=== PATIENT | female | born 1995 | race Caucasian/White ===

== ENCOUNTER 2017-04-02 17:08 | Emergency (ER) | payer OTHER ==
[~2017-04-02] VITALS: Ht 154.9 cm; Wt 63.6 kg
[2017-04-02 17:09] VITALS: BP 154/81
[2017-04-02] MEDS ORDERED: TESS100C PO (17:36)
[2017-04-02] MEDS ORDERED: ZITHTAB PO (17:36)
== END 2017-04-02 17:48 | disposition home or self-care (01) ==
LOC: M ED 17:08
DX: J01.90 Acute sinusitis, unspecified (principal)

== ENCOUNTER → 2018-08-13 | Outpatient (CLI) | payer OTHER ==
[~2018-08-13] MED LIST: TESS100C PO; ZITHTAB PO
[2018-08-13 18:15] LABS: RUBELLA IgG QUALITATIVE IMMUNE (IMMUNE)
[2018-08-15 08:38] LABS: MUMPS VIRUS IgG ANTIBODY 59.8 AU/mL (Immune >10.9)
== END ==
LOC: M WUC 13:48
PROVIDERS: ATTEND Physician Assistant
DX: Z02.1 Encounter for pre-employment examination (principal)

== ENCOUNTER 2020-06-01 21:48 | Emergency (ER) | payer OTHER ==
[~2020-06-01] VITALS: Ht 154.9 cm; Wt 68.4 kg
[2020-06-02 00:21] LABS: BASO # 0.1 10^3/uL (0.0-0.2); BASO % 0.4 % (0.0-1.0); EOS # 0.1 10^3/uL (0.0-0.5); EOS % 0.9 % (0.0-3.0); HEMATOCRIT 45.5 % (36.0-47.0); HEMOGLOBIN 15.2 g/dl (12.0-15.5); LYMPH # 3.2 10^3/uL (1.5-5.0); LYMPH % 22.3 % (24.0-44.0); MEAN CORPUSCULAR HEMOGLOBIN 29.7 pg (27.0-33.0); MEAN CORPUSCULAR HGB CONC 33.4 g/dl (32.0-36.5); MEAN CORPUSCULAR VOLUME 88.9 fl (80.0-96.0); MONO # 0.9 10^3/uL (0.0-0.8); MONO % 6.1 % (0.0-5.0); NEUTROPHILS # 9.9 10^3/uL (1.5-8.5); NEUTROPHILS % 69.7 % (36.0-66.0); PLATELET COUNT, AUTOMATED 305 10^3/uL (150-450); RED BLOOD COUNT 5.12 10^6/uL (4.00-5.40); WHITE BLOOD COUNT 14.2 10^3/uL (4.0-10.0)
[2020-06-02 00:50] LABS: ACETAMINOPHEN LEVEL < 2.0 UG/ML (10.0-30.0); ALBUMIN 3.8 GM/DL (3.2-5.2); ALT/SGPT 34 U/L (12-78); BILIRUBIN,DIRECT 0.2 MG/DL (0.0-0.2); BILIRUBIN,TOTAL 0.4 MG/DL (0.2-1.0); BLOOD UREA NITROGEN 7 MG/DL (7-18); CALCIUM LEVEL 9.5 MG/DL (8.5-10.1); CARBON DIOXIDE LEVEL 26 MEQ/L (21-32); CHLORIDE LEVEL 107 MEQ/L (98-107); CPK CREATINE PHOSPHOKINASE 37 U/L (26-192); CREATININE FOR GFR 0.81 MG/DL (0.55-1.30); ETHYL ALCOHOL (ETHANOL) < 0.003 % (0.000-0.010); GLOMERULAR FILTRATION RATE > 60.0 (>60); GLUCOSE, FASTING 78 MG/DL (70-100); POTASSIUM SERUM 3.7 MEQ/L (3.5-5.1); SALICYLATE LEVEL < 1.7 MG/DL (5.0-30.0); SODIUM LEVEL 138 MEQ/L (136-145); THYROID STIMULATING HORMONE 0.597 uIU/ML (0.358-3.740); TOTAL PROTEIN 7.1 GM/DL (6.4-8.2)
[2020-06-02 01:24] LABS: AMPHETAMINES LEVEL URINE NEGATIVE (NEGATIVE); BARBITURATES URINE NEGATIVE (NEGATIVE); BENZODIAZEPINES URINE NEGATIVE (NEGATIVE); CANNABINOIDS URINE POSITIVE (NEGATIVE); COCAINE METABOLITE URINE NEGATIVE (NEGATIVE); METHADONE URINE NEGATIVE (NEGATIVE); OPIATES URINE NEGATIVE (NEGATIVE); PHENCYCLIDINE URINE NEGATIVE (NEGATIVE)
[2020-06-02] MEDS ORDERED: FAMOTIDINE INJ 20MG/2ML VIAL (S0028 PER 1) IVP ONE (02:15)
[2020-06-02] MEDS ORDERED: NS 1,000 ML IV ONE ×2 (02:15)
[2020-06-02] MEDS ORDERED: ONDANSETRON 4MG/2ML VIAL IV ONE (02:15)
[2020-06-02] MEDS ORDERED: METAL LOCK LOOP XX ONE (02:22)
[2020-06-02 02:30] LABS: APPEARANCE, URINE HAZY (CLEAR); BACTERIA, URINE AUTO NEGATIVE (NEGATIVE); BILIRUBIN, URINE AUTO NEGATIVE (NEGATIVE); BLOOD, URINE BLOOD NEGATIVE (NEGATIVE); COLOR, URINE YELLOW (YELLOW); GLUCOSE, URINE (UA) AUTO NEGATIVE (NEGATIVE); KETONE, URINE AUTO 2+ mg/dL (NEGATIVE); LEUKOCYTE ESTERASE, URINE AUTO 1+ (NEGATIVE); MUCUS, URINE SMALL (NEGATIVE); NITRITE, URINE AUTO NEGATIVE (NEGATIVE); PROTEIN, URINE AUTO NEGATIVE (NEGATIVE); RBC, URINE AUTO 1 /HPF (0-3); SQUAMOUS EPITHELIAL CELL UR AU 7 /HPF (0-6); UROBILINOGEN, URINE AUTO 0.2 mg/dL (0.0-2.0); WBC, URINE AUTO 6 /HPF (0-3)
[2020-06-02] MEDS ORDERED: LR 1,000 ML IV ONE (03:00)
[2020-06-02 04:39] LABS: APPEARANCE, URINE CLEAR (CLEAR); BACTERIA, URINE AUTO NEGATIVE (NEGATIVE); BILIRUBIN, URINE AUTO NEGATIVE (NEGATIVE); BLOOD, URINE BLOOD NEGATIVE (NEGATIVE); COLOR, URINE STRAW (YELLOW); GLUCOSE, URINE (UA) AUTO NEGATIVE (NEGATIVE); KETONE, URINE AUTO 1+ mg/dL (NEGATIVE); LEUKOCYTE ESTERASE, URINE AUTO NEGATIVE (NEGATIVE); MUCUS, URINE SMALL (NEGATIVE); NITRITE, URINE AUTO NEGATIVE (NEGATIVE); PROTEIN, URINE AUTO NEGATIVE (NEGATIVE); RBC, URINE AUTO 1 /HPF (0-3); SPECIFIC GRAVITY URINE AUTO 1.005 (1.002-1.035); SQUAMOUS EPITHELIAL CELL UR AU 1 /HPF (0-6); UROBILINOGEN, URINE AUTO 0.2 mg/dL (0.0-2.0); WBC, URINE AUTO 0 /HPF (0-3)
[2020-06-02 05:00] VITALS: BP 141/65
[2020-06-02] MEDS ORDERED: PEPC1TAB5 PO (05:32)
[2020-06-02] MEDS ORDERED: REGL5TAB2 PO (05:33)
--- NOTE | 2020-06-02 17:02 | ECGEPIP ---
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
== END 2020-06-02 05:53 | disposition home or self-care (01) ==
LOC: M ED 21:48
DX: O21.9 Vomiting of pregnancy, unspecified (principal); Z3A.08 8 weeks gestation of pregnancy
CPT/HCPCS: 80048; 80076; 80307; 81001; 82550; 84443; 85025; 93005; 96361; 96374; 96375; 99284; G0480; J2405

== ENCOUNTER → 2020-06-04 | Outpatient (REF) | payer OTHER ==
[~2020-06-04] MED LIST changes: +PEPC1TAB5 PO; +REGL5TAB2 PO
[2020-06-04 17:09] LABS: HEMATOCRIT 42.6 % (36.0-47.0); HEMOGLOBIN 14.2 g/dl (12.0-15.5); MEAN CORPUSCULAR HEMOGLOBIN 29.7 pg (27.0-33.0); MEAN CORPUSCULAR HGB CONC 33.3 g/dl (32.0-36.5); MEAN CORPUSCULAR VOLUME 89.1 fl (80.0-96.0); PLATELET COUNT, AUTOMATED 287 10^3/uL (150-450); RED BLOOD COUNT 4.78 10^6/uL (4.00-5.40); WHITE BLOOD COUNT 10.7 10^3/uL (4.0-10.0)
[2020-06-04 18:29] LABS: HCG, SERUM QUANTITATIVE 87666 MIU/ML; HEPATITIS B SURFACE ANTIGEN NEGATIVE (NEGATIVE); HEPATITIS C VIRUS ABY INDEX < 0.0 INDEX (<0.8); HIV 1&2 SCREEN CENTAUR NEGATIVE (NEGATIVE)
== END ==
LOC: M LAB REF 16:25
PROVIDERS: ATTEND Obstetrics & Gynecology
DX: O36.80X0 Pregnancy with inconclusive fetal viability, not applicable or unspecified (principal)

== ENCOUNTER → 2020-06-09 | Outpatient (CLI) | payer OTHER ==
--- NOTE | 2020-06-09 14:43 | REP ---
INDICATION: DATING AND VIABILITY. COMPARISON: None. TECHNIQUE: Real-time sonographic evaluation of gravid uterus performed. FINDINGS: There is a single living intrauterine gestation with an estimated gestational age of 8 weeks 5 days based on a crown-rump length of 21 mm. EDC is 01/14/2021. The heart rate is 165 beats per minute. A subchorionic hemorrhage is visualized measuring 7 x 14 x 17 mm. Left ovary is unremarkable. The right ovary demonstrates a cystic structure which is complex and measures approximately 2.2 cm in maximum diameter, likely a hemorrhagic corpus luteum. IMPRESSION: Single living intrauterine gestation as above with small subchorionic hemorrhage. <Electronically signed by Talat Ochoa > 06/09/20 [id number]
== END ==
LOC: M WHC 12:50
PROVIDERS: ATTEND Obstetrics & Gynecology
DX: O36.80X0 Pregnancy with inconclusive fetal viability, not applicable or unspecified (principal); Z3A.08 8 weeks gestation of pregnancy

== ENCOUNTER 2020-07-01 13:00 | Emergency (ER) | payer OTHER ==
[~2020-07-01] VITALS: Ht 154.9 cm; Wt 65.9 kg
[2020-07-01] MEDS ORDERED: ONDA4TAB6 SL (13:12)
[2020-07-01] MEDS ORDERED: METOCLOPRAMIDE INJ 10MG/2ML VIAL (J2765 PER 1) IV ONE (13:45)
[2020-07-01] MEDS ORDERED: NS 1,000 ML IV ONE (13:45)
[2020-07-01 14:06] LABS: BASO % 0.2 % (0.0-1.0); EOS # 0.1 10^3/uL (0.0-0.5); EOS % 0.6 % (0.0-3.0); HEMATOCRIT 43.6 % (36.0-47.0); HEMOGLOBIN 14.6 g/dl (12.0-15.5); LYMPH # 2.7 10^3/uL (1.5-5.0); LYMPH % 21.6 % (24.0-44.0); MEAN CORPUSCULAR HEMOGLOBIN 29.4 pg (27.0-33.0); MEAN CORPUSCULAR HGB CONC 33.5 g/dl (32.0-36.5); MEAN CORPUSCULAR VOLUME 87.9 fl (80.0-96.0); MONO # 0.7 10^3/uL (0.0-0.8); MONO % 5.3 % (0.0-5.0); NEUTROPHILS % 71.5 % (36.0-66.0); PLATELET COUNT, AUTOMATED 280 10^3/uL (150-450); RED BLOOD COUNT 4.96 10^6/uL (4.00-5.40); WHITE BLOOD COUNT 12.5 10^3/uL (4.0-10.0)
[2020-07-01] MEDS ORDERED: ACETAMINOPHEN TAB 650MG DOSE (2X325MG) PO ONE (14:15)
[2020-07-01 14:49] LABS: BLOOD UREA NITROGEN 9 MG/DL (7-18); CALCIUM LEVEL 9.2 MG/DL (8.5-10.1); CARBON DIOXIDE LEVEL 23 MEQ/L (21-32); CHLORIDE LEVEL 108 MEQ/L (98-107); CREATININE FOR GFR 0.74 MG/DL (0.55-1.30); GLOMERULAR FILTRATION RATE > 60.0 (>60); GLUCOSE, FASTING 92 MG/DL (70-100); HCG, SERUM QUANTITATIVE 34846 MIU/ML; POTASSIUM SERUM 3.5 MEQ/L (3.5-5.1); SODIUM LEVEL 141 MEQ/L (136-145)
--- NOTE | 2020-07-01 15:25 | REP ---
INDICATION: n/v, 12 weeks COMPARISON: None. TECHNIQUE: Transabdominal 1st trimester obstetrical ultrasound with color Doppler evaluation. FINDINGS: Single live intrauterine identified. Fetus measures 6 cm in length corresponding to 12 weeks 3 days gestational age with estimated date of delivery 01/10/2021. heart rate equals 160 beats per minute. No gross abnormalities are identified. IMPRESSION: Single live early intrauterine at 12 weeks 3 days gestational age. Complete anatomical assessment should be performed and 19-20 weeks. <Electronically signed by Saúl London > 07/01/20 [id number]
[2020-07-01 15:54] VITALS: BP 132/72
[2020-07-01] MEDS ORDERED: REGL10TA6 PO (15:58)
== END 2020-07-01 16:05 | disposition home or self-care (01) ==
LOC: M ED 13:00
DX: Z32.01 Encounter for pregnancy test, result positive (principal); O21.9 Vomiting of pregnancy, unspecified; Z3A.12 12 weeks gestation of pregnancy
CPT/HCPCS: 36415; 76801; 80048; 81001; 84702; 85025; 87086; 93976; 96374; 99284; J2765

== ENCOUNTER 2020-07-17 16:48 | Emergency (ER) | payer OTHER ==
[~2020-07-17] VITALS: Ht 154.9 cm; Wt 68.2 kg
[~2020-07-17 16:48] MED LIST changes: +ONDA4TAB6 SL; +REGL10TA6 PO
[2020-07-17 17:37] LABS: BASO % 0.3 % (0.0-1.0); EOS # 0.2 10^3/uL (0.0-0.5); EOS % 1.5 % (0.0-3.0); HEMATOCRIT 38.1 % (36.0-47.0); HEMOGLOBIN 13.2 g/dl (12.0-15.5); LYMPH # 2.8 10^3/uL (1.5-5.0); LYMPH % 22.9 % (24.0-44.0); MEAN CORPUSCULAR HEMOGLOBIN 30.8 pg (27.0-33.0); MEAN CORPUSCULAR HGB CONC 34.6 g/dl (32.0-36.5); MEAN CORPUSCULAR VOLUME 88.8 fl (80.0-96.0); MONO # 0.8 10^3/uL (0.0-0.8); MONO % 6.2 % (0.0-5.0); NEUTROPHILS # 8.4 10^3/uL (1.5-8.5); NEUTROPHILS % 68.5 % (36.0-66.0); PLATELET COUNT, AUTOMATED 249 10^3/uL (150-450); RED BLOOD COUNT 4.29 10^6/uL (4.00-5.40); WHITE BLOOD COUNT 12.3 10^3/uL (4.0-10.0)
[2020-07-17 18:06] LABS: BLOOD UREA NITROGEN 8 MG/DL (7-18); CALCIUM LEVEL 9.2 MG/DL (8.5-10.1); CARBON DIOXIDE LEVEL 26 MEQ/L (21-32); CHLORIDE LEVEL 106 MEQ/L (98-107); GLOMERULAR FILTRATION RATE > 60.0 (>60); GLUCOSE, FASTING 110 MG/DL (70-100); POTASSIUM SERUM 3.7 MEQ/L (3.5-5.1); SODIUM LEVEL 139 MEQ/L (136-145)
--- NOTE | 2020-07-17 18:23 | ECGEPIP ---
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
--- OUTSIDE RECORDS SUMMARY | 2020-07-17 18:36 | CCD ---
Author Author [facility] Organization [facility] Address Unknown Phone Unavailable Care Team Providers Care Health Policy Nurse Name Role Phone Susan Flores Unavailable Unavailable SORIN, MARGOT PA Unavailable Unavailable SORIN, MARGOT PA Unavailable Unavailable SORIN, MARGOT PA Unavailable Unavailable SORIN, MARGOT PA Unavailable Unavailable SORIN, MARGOT PA Unavailable Unavailable SORIN, MARGOT PA Unavailable Unavailable SORIN, MARGOT PA Unavailable Unavailable SORIN, MARGOT PA Unavailable Unavailable SORIN, MARGOT PA Unavailable Unavailable SORIN, MARGOT PA Unavailable Unavailable SORIN, MARGOT PA Unavailable Unavailable SORIN, MARGOT PA Unavailable Unavailable SORIN, MARGOT PA Unavailable Unavailable SORIN, MARGOT PA Unavailable Unavailable SORIN, MARGOT PA Unavailable Unavailable SORIN, MAROGT PA Unavailable Unavailable SORIN, MARGOT PA Unavailable Unavailable SORIN, MARGOT PA Unavailable Unavailable SORIN, MARGOT PA Unavailable Unavailable SORIN, MARGOT PA Unavailable Unavailable SORIN, MARGOT PA Unavailable Unavailable SORIN, MARGOT PA Unavailable Unavailable SORIN, MARGOT PA Unavailable Unavailable SORIN, MARGOT PA Unavailable Unavailable SORIN, MARGOT PA Unavailable Unavailable SORIN, MARGOT PA Unavailable Unavailable SORIN, MARGOT PA Unavailable Unavailable SORIN, MARGOT PA Unavailable Unavailable SORIN, MARGOT PA Unavailable Unavailable SORIN, MARGOT PA Unavailable Unavailable SORIN, MARGOT PA Unavailable Unavailable SORIN, MARGOT PA Unavailable Unavailable SORIN, MARGOT PA Unavailable Unavailable SORIN, MARGOT PA Unavailable Unavailable SORIN, MARGOT PA Unavailable Unavailable SORIN, MARGOT PA Unavailable Unavailable SORIN, MARGOT PA Unavailable Unavailable SORIN, MARGOT PA Unavailable Unavailable Gan, Tahira SIGNAL TOWER DIRECTOR Unavailable Unavailable Gan, Tahira SIGNAL TOWER DIRECTOR Unavailable Unavailable Gan, Tahira SIGNAL TOWER DIRECTOR Unavailable Unavailable Gan, Tahira SIGNAL TOWER DIRECTOR Unavailable Unavailable Gan, Tahira SIGNAL TOWER DIRECTOR Unavailable Unavailable Gan, Tahira SIGNAL TOWER DIRECTOR Unavailable Unavailable Gan, Tahira SIGNAL TOWER DIRECTOR Unavailable Unavailable Gan, Tahira SIGNAL TOWER DIRECTOR Unavailable Unavailable Gan, Tahira SIGNAL TOWER DIRECTOR Unavailable Unavailable Gan, Tahira SIGNAL TOWER DIRECTOR Unavailable Unavailable Gan, Tahira SIGNAL TOWER DIRECTOR Unavailable Unavailable LETTIERE, A VICTOR MANUEL PA Unavailable Unavailable LETTIERE, A VICTOR MANUEL PA Unavailable Unavailable LETTIERE, A VICTOR MANUEL PA Unavailable Unavailable LETTIERE, A VICTOR MANUEL PA Unavailable Unavailable LETTIERE, A VICTOR MANUEL PA Unavailable Unavailable LETTIERE, A VICTOR MANUEL PA Unavailable Unavailable LETTIERE, A VICTOR MANUEL PA Unavailable Unavailable LETTIERE, A VICTOR MANUEL PA Unavailable Unavailable LETTIERE, A VICTOR MANUEL PA Unavailable Unavailable LETTIERE, A VICTOR MANUEL PA Unavailable Unavailable LETTIERE, A VICTOR MANUEL PA Unavailable Unavailable LETTIERE, A VICTOR MANUEL PA Unavailable Unavailable LETTIERE, A VICTOR MANUEL PA Unavailable Unavailable LETTIERE, A VICTOR MANUEL PA Unavailable Unavailable LETTIERE, A VICTOR MANUEL PA Unavailable Unavailable LETTIERE, A VICTOR MANUEL PA Unavailable Unavailable LETTIERE, A VICTOR MANUEL PA Unavailable Unavailable LETTIERE, A VICTOR MANUEL PA Unavailable Unavailable LETTIERE, A VICTOR MANUEL PA Unavailable Unavailable LETTIERE, A VICTOR MANUEL PA Unavailable Unavailable LETTIERE, A VICTOR MANUEL PA Unavailable Unavailable LETTIERE, A VICTOR MANUEL PA Unavailable Unavailable LETTIERE, A VICTOR MANUEL PA Unavailable Unavailable LETTIERE, A VICTOR MANUEL PA Unavailable Unavailable LETTIERE, A VICTOR MANUEL PA Unavailable Unavailable LETTIERE, A VICTOR MANUEL PA Unavailable Unavailable LETTIERE, A VICTOR MANUEL PA Unavailable Unavailable LETTIERE, A VICTOR MANUEL PA Unavailable Unavailable LETTIERE, A VICTOR MANUEL PA Unavailable Unavailable Re-disclosure Warning The records that you are about to access may contain information from federally-assisted alcohol or drug abuse programs. If such information is present, then the following federally mandated warning applies: This information has been disclosed to you from records protected by federal confidentiality rules (42 CFR part 2). The federal rules prohibit you from making any further disclosure of this information unless further disclosure is expressly permitted by the written consent of the person to whom it pertains or as otherwise permitted by 42 CFR part 2. A general authorization for the release of medical or other information is NOT sufficient for this purpose. The Federal rules restrict any use of the information to criminally investigate or prosecute any alcohol or drug abuse patient.The records that you are about to access may contain highly sensitive health information, the redisclosure of which is protected by Article 27-F of the [facility] Public Health law. If you continue you may have access to information: Regarding HIV / AIDS; Provided by facilities licensed or operated by the [facility] Office of Mental Health; or Provided by the [facility] Office for People With Developmental Disabilities. If such information is present, then the following [facility] mandated warning applies: This information has been disclosed to you from confidential records which are protected by state law. State law prohibits you from making any further disclosure of this information without the specific written consent of the person to whom it pertains, or as otherwise permitted by law. Any unauthorized further disclosure in violation of state law may result in a fine or fdc sentence or both. A general authorization for the release of medical or other information is NOT sufficient authorization for further disc losure. Family History Family Member Name Family Member Gender Family Member Status Date o f Status Description Data Source(s) Unknown Unknown Problem [facility] ([facility]) Encounters Encounter Providers Location Date Indications Data Source(s ) Outpatient Attender: VICTOR MANUEL bennett 05/26/2020 02:35:00 PM EST [facility] ([facility]) Outpatient Attender: Susan Flores [facility] 12/10/2019 07:32:13 PM EDT [facility] Outpatient Attender: Susan Flores [facility] 11/30/2019 12:08:46 AM EDT [facility] Outpatient Attender: MARGOT Ambrosio ry 07/11/2019 08:45:00 AM EST [facility] ([facility]) Outpatient Attender: Tahira Rodrigues austin 06/14/2019 09:45:00 AM EST [facility] ([facility]) Medications Medication Brand Name Start Date Product Form Dose Route Admi nistrative Instructions Pharmacy Instructions Status Indications Reaction Description Data Source(s) 10 mg 07/01/2020 12:00:00 AM EST tablet 10 TAKE ONE TABLET BY MOUTH EVERY 6 TO 8 HOURS NEEDED FOR NAUSEA TAKE ONE TABLET BY MOUTH EVERY 6 TO 8 HO URS NEEDED FOR NAUSEA SOLD: 07/01/2020 [facility] Ondansetron 4 MG Disintegrating Oral Tablet Ondansetron 05/26/2020 12:00:00 AM EST active [facility] ([facility]) No Active Medications 05/26/2020 12:00:00 AM EST completed [facility] ([facility]) 2.5 mg 12/11/2019 12:00:00 AM EDT tablet 10 TAKE TWO TABLETS BY MOUTH EVERY DAY TAKE TWO TABLETS BY MOUTH EVERY DAY SOLD: 12/13/2019 [facility] 250 mg 12/11/2019 12:00:00 AM EDT tablet 6 TAKE TWO TABLETS BY MOUTH AT ONCE ON THE FIRST DAY THEN TAKE ONE DAILY THEREAFTER TAKE TWO TABLETS BY MOUTH AT ONCE ON THE FIRST DAY THEN TAKE ONE DAILY THEREAFTER SOLD: 12/13/2019 [facility] 5 mg 12/11/2019 12:00:00 AM EDT tablet 60 TAKE ONE TABLET BY MOUTH TWICE A DAY TAKE ONE TABLET BY MOUTH TWICE A DAY SOLD: 12/13/2019 [facility] 100 mg 12/11/2019 12:00:00 AM EDT insert 21 INSERT ONE VAGINAL INSERT VAGINALLY TWICE A DAY INSERT ONE VAGINAL INSERT VAGINALLY TWICE A DAY SOLD: 12/13/2019 [facility] 5 mg 12/11/2019 12:00:00 AM EDT tablet 60 TAKE ONE TABLET BY MOUTH TWICE A DAY TAKE ONE TABLET BY MOUTH TWICE A DAY SOLD: 01/15/2020 [facility] pantoprazole 20 MG Delayed Release Oral Tablet PANTOPRAZOLE SODIUM 12/04/2019 12:00:00 AM EDT tablet,delayed release (DR/EC) 30 T MICHELLE ONE TABLET BY MOUTH EVERY DAY TAKE ONE TABLET BY MOUTH EVERY DAY SOLD: 12/04/2019 [facility] 4 mg 12/02/2019 12:00:00 AM EDT tablet 16 TAKE ONE TABLET BY MOUTH EVERY 6 HOURS NEEDED FOR NAUSEA TAKE ONE TABLET BY MOUTH EVERY 6 HOURS A S NEEDED FOR NAUSEA SOLD: 12/04/2019 [facility] 250 mg 12/02/2019 12:00:00 AM EDT tablet 6 TAKE TWO TABLETS BY MOUTH AT ONCE ON THE FIRST DAY THEN TAKE ONE DAILY THEREAFTER TAKE TWO TABLETS BY MOUTH AT ONCE ON THE FIRST DAY THEN TAKE ONE DAILY THEREAFTER SOLD: 12/04/2019 [facility] 8 mg 11/08/2019 12:00:00 AM EDT tablet,disintegrating [address] ONE TABLET UNDER THE TONGUE FOUR TIMES A DAY FOR [address] ONE TABLET UNDER THE TONGUE FOUR TIMES A DAY FOR 3 DAYS SOLD: 11/12/2019 [facility] 20 mg 07/11/2019 12:00:00 AM EST tablet 8 TAKE TWO TABLETS BY MOUTH EVERY DAY WITH FOOD FOR 4 DAYS TAKE TWO TABLETS BY MOUTH EVERY DAY WITH FOOD FOR 4 DAYS SOLD: 07/11/2019 [facility] Prednisone 20 MG Oral Tablet Prednisone 07/11/2019 12:00:00 AM EST ORAL active [facility] ([facility]) 75 mg 06/14/2019 12:00:00 AM EST tablet 14 TAKE ONE TABLET BY MOUTH EVERY DAY FOR 2 WEEKS TAKE ONE TABLET BY MOUTH EVERY DAY FOR 2 WEEKS SOLD: 019 [facility] 4 mg 06/14/2019 12:00:00 AM EST tablet,disintegrating 1 4 DISSOLVE ONE TABLET ON TONGUE EVERY 8 HOURS FOR NAUSEA AND VOMITING DISSOLVE ONE TABLET ON TONGUE EVERY 8 HOURS FOR NAUSEA AND VOMITING SOLD: 06/15/2019 [facility] Ranitidine 75 MG Oral Tablet Ranitidine Acid [employer] Examiner 06/14/2019 12:00:00 AM EST completed [facility] ([facility]) Ondansetron 4 MG Disintegrating Oral Tablet Ondansetron 06/14/2019 12:00:00 AM EST completed [facility] ([facility] No Active Medications 06/14/2019 12:00:00 AM EST completed [facility] ([facility]) Tobramycin 3 MG/ML Ophthalmic Solution Tobramycin 04/20/2019 12:0 0:00 AM EDT completed [facility] ([facility]) Ketorolac Tromethamine 5 MG/ML Ophthalmic Solution Ketorolac Tromethamine 04/20/2019 12:00:00 AM EDT completed [facility] ([facility]) Insurance Providers Payer name Policy type / Coverage type Policy ID Covered alliance party ID Covered alliance party's relationship to phillip Policy Phillip Plan Information [facility] [id number] FA2 [id number] D Guardian S [id number] S [id number] GHI P [id number] O [id number] [employer] (HMO) [id number] Family Dependent [id number] [employer] (HMO) [id number] Family Dependent [id number] [employer] (HMO) [id number] Family Dependent [id number] [employer] [id number] FA2 [id number] [employer] [id number] Family Dependent [id number] [employer] Family Dependent Results ID Date Data Source [id number] 01/24/2020 12:00:00 AM EDT [facility] Name Value Range Interpretation Code Description Data Cherelle rce(s) Supporting Document(s) SARS coronavirus 2 RNA [Presence] in Res piratory specimen by YANIV with probe detection [facility] This lab was ordered by [facility] and reported by [facility]. Procedure Social History Code Duration Value Status Description Data Source(s ) Smoking 05/26/2020 12:00:00 AM EST Patient has never smoked co mpleted Patient has never smoked [facility] ([facility]) Vital Signs ID Date Data Source UNK Name Value Range Interpretation Code Description Data Source(s) Body weight 150.00 [lb_av] 150.00 [lb_av] MEDEN T ([facility]) Body temperature 98.5 [degF] 98.5 [degF] [facility] ([facility]) Oxygen saturation in Arterial blood by Pulse oximetry 98 % 98 % [facility] ([facility] Respiratory rate 16 /min 16 /min [facility] ( [facility]) Heart rate 88 /min 88 /min [facility] ([facility]) Diastolic blood pressure 76 mm[Hg] 76 mm[Hg] [facility] ([facility]) Systolic blood pressure 129 mm[Hg] 129 mm[Hg] M EDENT ([facility]) Body mass index (BMI) [Ratio] 26.4 kg/m2 26.4 k g/m2 [facility] ([facility]) Body height 61 [in_i] 61 [in_i] [facility] 5'1" Body weight 140.00 [lb_av] 140.00 [lb_av] MEDEN T ([facility]) Body temperature 98.2 [degF] 98.2 [degF] [facility] ([facility]) Oxygen saturation in Arterial blood by Pulse oximetry 97 % 97 % [facility] ([facility]) Respiratory rate 16 /min 16 /min [facility] ( [facility]) Heart rate 98 /min 98 /min [facility] ([facility] regular Diastolic blood pressure 80 mm[Hg] 80 mm[Hg] [facility] ([facility] [place]) Systolic blood pressure 116 mm[Hg] 116 mm[Hg] [facility]) Body mass index (BMI) [Ratio] 26.4 kg/m2 26.4 k g/m2 [facility] ([facility]) Body height 61 [in_i] 61 [in_i] [facility] ([facility]) 5'1" Body weight 140.00 [lb_av] 140.00 [lb_av] MED[facility] T ([facility] [place]) Body temperature 98.7 [degF] 98.7 [degF] [facility] ([facility] [facility] [place]) Oxygen saturation in Arterial blood by Pulse oximetry 98 % 98 % [facility] ([facility] [place]) Respiratory rate 16 /min 16 /min [facility] ( [place] [facility] [place]) Heart rate 86 /min 86 /min [facility] ([facility] [place]) Diastolic blood pressure 84 mm[Hg] 84 mm[Hg] [facility] ([facility]) Systolic blood pressure 144 mm[Hg] 144 mm[Hg] M NIRMALA ([facility])
[2020-07-17 19:19] VITALS: BP 140/64
== END 2020-07-17 19:27 | disposition home or self-care (01) ==
LOC: M ED 16:48 → EDBD 16:48 → M ED 19:27
DX: O99.891 Other specified diseases and conditions complicating pregnancy (principal); R55 Syncope and collapse; Z3A.14 14 weeks gestation of pregnancy

== ENCOUNTER → 2020-08-26 | Outpatient (CLI) | payer OTHER ==
--- NOTE | 2020-08-26 16:24 | REP ---
INDICATION: ANATOMY. COMPARISON: 07/01/2020. TECHNIQUE: Real-time sonographic evaluation of the gravid uterus performed. FINDINGS: Estimated gestational age is20 weeks 4 days, EDC 01/09/2021. Today's measurements indicate appropriate growth. Presentation: Cephalic Placenta posterior, grade 1, without evidence of placenta previa. heart rate is recorded at 152 beats per minute. Amniotic fluid is subjectively normal. Closed cervical length is measured at 3.5 cm. Biometry chart: BPD: 45 mm, 19 weeks 3 days, 20th percentile. HC: 174 mm, 19 weeks 6 days, 29th percentile AC: 160 mm, 21 weeks 1 days, 62nd percentile Femur length: 34 mm, 20 weeks 5 days, 53rd percentile HC to AC ratio: 1.08, normal range 1.06-1.24. Estimated weight: 376g, 55th percentile. anatomy: Cranium: Grossly normal Lateral Ventricles/Choroid Plexus: Grossly normal Posterior Fossa/Cerebellum: Grossly normal Nose/lips/profile: Grossly normal Four chamber heart: Grossly normal Right ventricular outflow tract: Grossly normal Left ventricular outflow tract: Grossly normal Left-sided stomach: Grossly normal Kidneys: Grossly normal Bladder: Grossly normal Cord Insertion: Grossly normal 3 vessel cord: Grossly normal Spine: Grossly normal IMPRESSION: Viable single intrauterine gestation as above. <Electronically signed by Talat Ochoa > 08/26/20 [id number]
== END ==
LOC: M WHC 12:22
PROVIDERS: ATTEND Obstetrics & Gynecology
DX: Z34.82 Encounter for supervision of other normal pregnancy, second trimester (principal); Z3A.20 20 weeks gestation of pregnancy

== ENCOUNTER → 2020-10-14 | Outpatient (CLI) | payer OTHER ==
[2020-10-14 12:40] LABS: HEMATOCRIT 39.2 % (36.0-47.0); MEAN CORPUSCULAR HEMOGLOBIN 31.2 pg (27.0-33.0); MEAN CORPUSCULAR HGB CONC 33.2 g/dl (32.0-36.5); PLATELET COUNT, AUTOMATED 265 10^3/uL (150-450); RED BLOOD COUNT 4.17 10^6/uL (4.00-5.40)
[2020-10-15 07:28] LABS: WHITE BLOOD COUNT 16.1 10^3/uL (4.0-10.0)
== END ==
LOC: M WUC 10:45
PROVIDERS: ATTEND Obstetrics & Gynecology
DX: Z34.02 Encounter for supervision of normal first pregnancy, second trimester (principal)

== ENCOUNTER → 2020-12-22 | Outpatient (REF) | payer OTHER | LOC: M LAB REF 16:55 | PROVIDERS: ATTEND Advanced Practice Midwife | DX: Z34.03 Encounter for supervision of normal first pregnancy, third trimester (principal) ==

== ENCOUNTER 2020-12-30 13:47 | Outpatient (CLI) | payer OTHER ==
[~2020-12-30] VITALS: Ht 154.9 cm; Wt 77.6 kg
[2020-12-30] MEDS ORDERED: LOPERAMIDE 2 MG CAPLET PO PRN (14:15)
[2020-12-30] MEDS ORDERED: D5W 1000ML IV ONE (14:15)
[2020-12-30] MEDS ORDERED: ONDANSETRON 4MG/2ML VIAL IV PRN (14:15)
[2020-12-30] MEDS ORDERED: MVI -ADULT INJECTION 10ML VIAL IV ONE (14:15)
[2020-12-30 15:12] LABS: HEMATOCRIT 38.9 % (36.0-47.0); HEMOGLOBIN 13.4 g/dl (12.0-15.5); MEAN CORPUSCULAR HGB CONC 34.4 g/dl (32.0-36.5); PLATELET COUNT, AUTOMATED 282 10^3/uL (150-450); RED BLOOD COUNT 4.47 10^6/uL (4.00-5.40); WHITE BLOOD COUNT 20.6 10^3/uL (4.0-10.0)
[2020-12-30 15:39] LABS: ALT/SGPT 74 U/L (12-78); BILIRUBIN,TOTAL 0.7 MG/DL (0.2-1.0); BLOOD UREA NITROGEN 16 MG/DL (7-18); CALCIUM LEVEL 9.2 MG/DL (8.5-10.1); CARBON DIOXIDE LEVEL 18 MEQ/L (21-32); CHLORIDE LEVEL 109 MEQ/L (98-107); CREATININE FOR GFR 0.75 MG/DL (0.55-1.30); GLOMERULAR FILTRATION RATE > 60.0 (>60); GLUCOSE, FASTING 90 MG/DL (70-100); SODIUM LEVEL 138 MEQ/L (136-145); TOTAL PROTEIN 6.9 GM/DL (6.4-8.2)
[2020-12-30 15:47] VITALS: BP 119/75
[2020-12-30 15:50] LABS: APPEARANCE, URINE CLOUDY (CLEAR); BACTERIA, URINE AUTO 1+ (NEGATIVE); BILIRUBIN, URINE AUTO NEGATIVE (NEGATIVE); BLOOD, URINE BLOOD NEGATIVE (NEGATIVE); COLOR, URINE AMBER (YELLOW); GLUCOSE, URINE (UA) AUTO NEGATIVE (NEGATIVE); KETONE, URINE AUTO 1+ mg/dL (NEGATIVE); LEUKOCYTE ESTERASE, URINE AUTO 3+ (NEGATIVE); MUCUS, URINE MODERATE (NEGATIVE); NITRITE, URINE AUTO NEGATIVE (NEGATIVE); PROTEIN, URINE AUTO 1+ mg/dL (NEGATIVE); RBC, URINE AUTO 9 /HPF (0-3); SQUAMOUS EPITHELIAL CELL UR AU 31 /HPF (0-6); TRANSITIONAL EPITHELIAL AUTO 1 /HPF; WBC, URINE AUTO TNTC /HPF (0-3)
[2020-12-30] MEDS ORDERED: LR 1,000 ML IV SCH (16:00)
[2020-12-30] MEDS ORDERED: MULTIVITAMIN -ADULT INJECTION 10 ML in D5W 1,000 ML IV ONE (16:00)
[2020-12-30] MEDS ORDERED: PRENTAB9 PO (17:08)
--- NOTE | 2020-12-30 20:11 | IPN ---
PROGRESS NOTE DATE: 12/30/2020 SUBJECTIVE: Vanessa is a 25-year-old 1, para 0 at 37 and 6/7 weeks gestation, EDC of 01/14/2021 based on first trimester ultrasound. She presents to labor and delivery today from home with a report of nausea, vomiting and diarrhea that started last evening. The last time she was able to keep solid food down was at 2100 on 12/29/2020 and this morning she was only able to keep a few sips of clear liquids. She does report an occasional contraction. Denies vaginal bleeding and leakage of fluid. Her care was initiated at [facility] in the first trimester. Her course has been essentially uncomplicated. OBSTETRIC HISTORY: Primigravida. OBSTETRIC LABS: B+. Antibody screen negative. Rubella immune. VDRL nonreactive. Urine culture no growth. Hep B surface antigen negative. HIV negative. Hepatitis C antibody nonreactive. Gonorrhea and Chlamydia negative. Gestational diabetic screening 138. GBS is negative. PAST MEDICAL HISTORY: Noncontributory. PAST SURGICAL HISTORY: None. FAMILY HISTORY: Hypertension, aneurysm. SOCIAL HISTORY: Patient is legally . There is a father of the baby involved and he is at bedside. She is a nonsmoker. Denies alcohol use. Does report some sporadic marijuana use. Denies history of sexually transmitted infections and denies history of abuse physical, sexual and emotional. ALLERGIES: No known drug allergies. CURRENT MEDICATIONS: vitamin. OBJECTIVE: Temperature 98, pulse 105, blood pressure 119/75. She is alert and oriented x3. LABORATORY DATA: Labs have been drawn. Urinalysis with +1 ketones, negative nitrates, negative blood, bacteria 1+. CMP: AST 40, ALT 74, alkaline phosphatase 196, potassium 4.0, calcium 9.2, glucose 90, BUN 16 and creatinine 0.75. CBC with white count 20.6, hemoglobin 13.4, hematocrit 38.9, platelets 282,000. heart rate is 125 with moderate variability, positive accelerations, negative decelerations. There is an occasional contraction. Sterile vaginal exam is deferred at this time. ASSESSMENT: Intrauterine at 37 and 6/7 weeks, heart category 1, viral gastroenteritis. PLAN: The patient has been hydrated with I.V. fluids. She has been given an antiemetic as well as an anti-diarrheal medication. She reports she has not vomited or had diarrhea in multiple hours since her arrival. She does request discharge home. She denies any regular contractions at this time. I did review discharge instructions that include signs and symptoms of active labor, movement counts, danger signs to report. I reviewed access to care and the patient has an appointment scheduled at [facility] on 01/05/2021. She is instructed to keep that appointment. The patient and her partner have had their questions answered and desire to be discharged home.
== END 2020-12-30 18:45 | disposition home or self-care (01) ==
LOC: M LDO 13:47
PROVIDERS: ATTEND Advanced Practice Midwife
DX: O21.8 Other vomiting complicating pregnancy (principal); Z3A.37 37 weeks gestation of pregnancy; A08.4 Viral intestinal infection, unspecified
CPT/HCPCS: 59025; 80053; 81001; 85027; 96361; 96374; G0378; G0463; J2405

== ENCOUNTER 2021-01-16 10:38 | Outpatient (CLI) | payer OTHER ==
[~2021-01-16] VITALS: Ht 154.9 cm; Wt 79.8 kg
[~2021-01-16 10:38] MED LIST changes: +PRENTAB9 PO
[2021-01-16 10:55] VITALS: BP 128/81
--- NOTE | 2021-01-16 14:10 | IPNPDOC ---
Obstetrical Progress Note Date of Service Jan 16, 2021 Subjective 25yo at 40+2 weeks EGA. Presents for a labor check. Reports frequent, painful uterine contractions. No loss of fluid or vaginal bleeding. Reports regular, frequent movement. ROS: No FLORES, visual changes, RUQ pain, sob, cp, n/v/f/c. complications: none; receives PN care at [facility] PMH: none SH: none OB: G1 STOCK TURNER: none reported Meds: PNV All: NKDA O: Normotensive, normal HR, afebrile Abd: soft,nt,nd, no fundal tenderness SVE: 3 cm, 50 %, -3, cephalic, intact, no bloody show (unchanged from previous SVE) EFM: Cat I / Reactive Cesar Chavez: contractions every 3-5min; palpated as mild. A/P: 25 yo at 40+2 weeks EGA. Latent labor; no evidence of active labor or ROM. Reassuring maternal and status. -Routine third trimester precautions given. -Follow up in office as scheduled. Has appointment 01/[address] Pop. Saadia Hendrix DO FACOG. Objective Vital Signs Date Time Temp Pulse Resp B/P (MAP) Pulse Ox O2 Delivery O2 Flow Rate FiO2 01/16/21 10:55 98.4 107 18 128/81 (97) 97 Room Air MARGOT HENDRIX DO Jan 16, 2021 14:10
[2021-01-17] MEDS ORDERED: ACET500P3 PO (10:08)
== END 2021-01-16 14:03 | disposition home or self-care (01) ==
LOC: M LDO 10:38
PROVIDERS: ATTEND Obstetrics & Gynecology
DX: O47.1 False labor at or after 37 completed weeks of gestation (principal); O48.0 Post-term pregnancy; Z3A.40 40 weeks gestation of pregnancy; Z79.899 Other long term (current) drug therapy
CPT/HCPCS: 59025; G0378; G0463

== ENCOUNTER 2021-01-17 09:45 | Inpatient (IN) | payer OTHER ==
[2021-01-17] VITALS (27 sets, daily range): BP systolic 99–144; BP diastolic 48–93
[~2021-01-17] VITALS: Ht 154.9 cm; Wt 79.9 kg
[2021-01-17] MEDS ORDERED: ACET500P3 PO (10:08)
[2021-01-17] MEDS ORDERED: LACTATED RINGER'S 1000 ML IV STA (11:09)
[2021-01-17] MEDS ORDERED: OXYTOCIN DRIP 30 UNITS in IV 1 EA IV PRN (11:10)
[2021-01-17] MEDS ORDERED: TRANEXAMIC ACID INJection 1,000 MG in NS 100 ML IV PRN (11:10)
[2021-01-17] MEDS ORDERED: LIDOCAINE 1% MDV 20ML VIAL INFIL PRN (11:10)
[2021-01-17] MEDS ORDERED: CARBOPROST TROMETHAMINE 250 MCG/ML AMP IM PRN (11:10)
[2021-01-17] MEDS ORDERED: METHYLERGONOVINE MALEATE 0.2 MG/ML VIAL (J2210) IM PRN (11:10)
--- NOTE | 2021-01-17 11:18 | HPEPDOC ---
Obstetrical History & Physical General Date of Admission History of Present Illness 25-year-old G1, P0 at 40+3 weeks gestation. Presents with frequent, painful uterine contractions over the past several hours. Denies any loss of fluid or vaginal bleeding. Reports regular movement. ROS: no FLORES, cp, sob, f ever/chills/nausea/vomiting. course: Uncomplicated; received care at [facility] PMH: None SH: None Meds: vitamin All: NKDA SHORTHAND REPORTER: No STI or dysplasia OB: G1 Sochx: No tobacco, alcohol or drug use,occasional marijuana use FamHx: None reported labs: Blood type B+, antibody screen negative, HepBsAg neg, HIV neg, rubella immune, Hep C antibody negative, RPR nonreactive, CT/GC neg, urine culture negative, 1 hour glucose challenge test 138, 3-hour GTT was not done, GBS negative imaging: no anomalies or placental abnormalities Past Medical History Allergies Coded Allergies: No Known Allergies (Unverified , 12/30/20) Medications Scheduled No.137/Iron/Folic Acd ( Vitamin Tablet) 1 Each Tablet, 1 TAB PO DAILY Scheduled PRN Acetaminophen (Tylenol Extra Strength) 500 Mg Powd.pack, 2 TABS PO Q6HP PRN for MILD DISCOMFORT Physical Examination Physical Examination GENERAL: Alert and oriented times three. ABDOMEN: Gravid and non-tender to touch. FETUS: Is vertex (VTX) by sterile vaginal examination (SVE), fetus is vertex (VTX) by Nehemias. HEART RATE: Regular rate and rhythm. LUNGS: Clear to auscultation (CTA). EXTREMITIES: No edema. No clonus. SVE: 5 cm, 90 % effaced, -2 station bulging membranes EFM: Currently category 1, moderate variability baseline 120 bpm, intermittent/rare late deceleration noted on initial evaluation [place]: Contractions occurring every 2 to 5 minutes Vital Signs/I&O Vital Signs Date Time Temp Pulse Resp B/P (MAP) Pulse Ox O2 Delivery O2 Flow Rate FiO2 01/17/21 10:03 108 98 Room Air 01/17/21 10:02 98.1 20 129/83 (98) Assessment/Plan Assessment 25-year-old G1, P0 at 40+3 weeks gestation in spontaneous active labor. Membranes intact. Reassuring maternal status. Plan Admit and orient. Orchardist and consent. Labs and intravenous (IV) per unit protocol. Anticipate C-S as appropriate. MARGOT HENDRIX DO Jan 17, 2021 11:18
[2021-01-17] MEDS ORDERED: FENTANYL 2MCG/ML ROPIVACAINE 0.2% IN 0.9% NACL 100ML IVBAG As Ordered ONE (11:34)
[2021-01-17 11:58] LABS: HEMATOCRIT 37.3 % (36.0-47.0); HEMOGLOBIN 12.9 g/dl (12.0-15.5); MEAN CORPUSCULAR HEMOGLOBIN 30.1 pg (27.0-33.0); MEAN CORPUSCULAR HGB CONC 34.6 g/dl (32.0-36.5); MEAN CORPUSCULAR VOLUME 87.1 fl (80.0-96.0); PLATELET COUNT, AUTOMATED 265 10^3/uL (150-450); RED BLOOD COUNT 4.28 10^6/uL (4.00-5.40); WHITE BLOOD COUNT 14.1 10^3/uL (4.0-10.0)
[2021-01-17 12:04] LABS: AMPHETAMINES URINE REFLEX NEGATIVE (NEGATIVE); BARBITURATES URINE REFLEX NEGATIVE (NEGATIVE); BENZODIAZEPINES URINE REFLEX NEGATIVE (NEGATIVE); CANNABINOIDS URINE REFLEX NEGATIVE (NEGATIVE); COCAINE METABOLITE URINE REFLE NEGATIVE (NEGATIVE); METHADONE URINE REFLEX NEGATIVE (NEGATIVE); OPIATES URINE REFLEX NEGATIVE (NEGATIVE); PHENCYCLIDINE URINE REFLEX NEGATIVE (NEGATIVE)
[2021-01-17] MEDS: ePHEDrine SULFATE 25 MG/5 ML(5MG/ML) SYRINGE IV PRN ×4 (12:06→19:55)
[2021-01-17] MEDS: LR 1,000 ML IV SCH ×2 (12:20→15:26)
[2021-01-17] MEDS ORDERED: EPIDURAL/PCA KEYS XX PRN (13:00)
[2021-01-17] MEDS ORDERED: ONDANSETRON 4MG/2ML VIAL IV PRN ×4 (13:00→21:45)
[2021-01-17] MEDS ORDERED: EPIDURAL COMMENT XX SCH (13:00)
[2021-01-17] MEDS ORDERED: FENTANYL/ROPIVACAINE/NACL BAG 100 ML EPIDURAL SCH (13:00)
[2021-01-17] MEDS ORDERED: NALOXONE INJ 0.4MG/1ML VIAL (J2310 PER 1MG) IV PRN ×3 (13:00→20:52)
[2021-01-17] MEDS ORDERED: diphenhydrAMINE 50MG/ML VIAL (J1200) IV PRN ×2 (13:00→20:52)
[2021-01-17] MEDS ORDERED: LACTATED RINGER'S 1000 ML IV PRN (13:00)
[2021-01-17] MEDS ORDERED: REFRIGERATOR IV KEYS XX PRN (13:00)
[2021-01-17] MEDS ORDERED: ceFAZolin 2 GM/D5W 50 ML IV BAG (J0690 PER 500MG) As Ordered ONE (20:10)
[2021-01-17] MEDS ORDERED: BICITRA 30ML SOLN UDC PO ONE (20:10)
[2021-01-17] MEDS ORDERED: ceFAZolin SOD 2 GM in IV 1 EA IV ONE (20:10)
[2021-01-17] MEDS ORDERED: AZITHROMYCIN INJ 500 MG, VIAL MATE ADAPTER 1 EACH in NS 250 ML IV ONE (20:10)
[2021-01-17] MEDS ORDERED: AZITHROMYCIN INJ 500MG VIAL (J0456 PER 500MG) As Ordered ONE (20:12)
[2021-01-17] MEDS ORDERED: BICITRA 30ML SOLN UDC As Ordered ONE (20:12)
[2021-01-17] MEDS ORDERED: VIAL MATE ADAPTER XX ONE (20:13)
--- NOTE | 2021-01-17 20:24 | IPNPDOC ---
Obstetrical Progress Note Date of Service Jan 17, 2021 Subjective Patient's pain well controlled with epidural. No VB/LOF. Objective Vital Signs Date Time Temp Pulse Resp B/P (MAP) Pulse Ox O2 Delivery O2 Flow Rate FiO2 01/17/21 19:12 100 16 118/71 (87) 01/17/21 18:12 98.5 99 Room Air Assessment Heart Rate Tracing: Category II (mod radha, recurrent late declerations) Tocometer Frequency: every 2-5 min. Sterile Vaginal Examination Dilation: 6 cm Effacement (%): 100% Station: -2 Assessment and Plan Status: Non-reassuring Anticipate: Section Additional Comments Persistent Cat II FHR. Inability to augment. Reservation with AROM given Cat II FHR. No cervical foreign exchange trader several hours despite active labor contraction pattern. Offered PLTCS and patient is amenable to this plan. OR/L&D team notified. Preparations for the OR being made. Patient c/c on r/b/a/i of PLTCS vs continuing with labor to achieve . Informed consent for PLTCS obtained. MARGOT HENDRIX DO Jan 17, 2021 20:24
[2021-01-17] MEDS ORDERED: ONDANSETRON 4MG/2ML VIAL As Ordered ONE (20:32)
[2021-01-17] MEDS ORDERED: OXYTOCIN INJ 10 UNITS/ML VIAL (J2590) As Ordered ONE (20:33)
[2021-01-17] MEDS ORDERED: MORPHINE PRES-FREE INJ 10 MG/10 ML VIAL (J2274) As Ordered ONE (20:49)
[2021-01-17] MEDS ORDERED: NALBUPHINE HCL 10 MG/ML AMP (J2300) IV PRN (20:52)
[2021-01-17] MEDS ORDERED: METOCLOPRAMIDE INJ 10MG/2ML VIAL (J2765 PER 1) IV PRN ×2 (20:52→21:45)
[2021-01-17] MEDS ORDERED: PHENYLephrine 500MCG 5ML (100MCG/ML) SYRINGE As Ordered ONE (20:55)
[2021-01-17] MEDS ORDERED: ANUSOL HC CREAM 30GM TOP PRN (21:30)
[2021-01-17] MEDS ORDERED: OXYTOCIN DRIP 30 UNITS in IV 1 EA IV SCH (21:30)
[2021-01-17] MEDS ORDERED: SIMETHICONE 80MG CHEW TAB PO PRN (21:30)
[2021-01-17] MEDS ORDERED: MEASLES,MUMPS,RUBELLA VACCINE INJ (MMR-II) (90707) SC SCH (21:30)
[2021-01-17] MEDS ORDERED: ACETAMINOPHEN 500 MG TAB PO PRN (21:30)
[2021-01-17] MEDS ORDERED: PERCOCET 5MG/325MG TAB PO PRN ×2 (21:30→21:45)
[2021-01-17] MEDS ORDERED: RHOGAM 300 MCG (1500 IU) INJ (J2790) IM SCH (21:30)
[2021-01-17] MEDS ORDERED: OXYTOCIN 30 UNITS IN 0.9% NaCl 500ML IV BAG (J2590) As Ordered ONE (21:32)
--- NOTE | 2021-01-17 21:33 | ROOPDOC ---
[facility] Report Of Operation Report of Operation DATE OF PROCEDURE: 01/17/2021 PREPROCEDURE DIAGNOSES: 40+3 weeks gestation, nonreassuring heart rate tracing, arrest of dilation POSTPROCEDURE DIAGNOSES: Same PROCEDURE: Primary low transverse section SURGEON: Sanjay Boykin DO FACOG CRIME LAB TECHNICIAN: none ANESTHESIA: Epidural ESTIMATED BLOOD LOSS: 500 mL. IV FLUIDS: 1200 mL LR URINE OUTPUT: 50 mL COMPLICATIONS: None. PREOPERATIVE ANTIBIOTICS: Ancef 2g IV x 1, azithromycin 500mg IV. COMPLICATIONS: none DATA: Apgars 8 and 9. Birthweight 3310 g, 7 lbs 6 oz. SPECIMENS: none PRIMARY INDICATION FOR : Nonreassuring heart rate tracing DESCRIPTION OF PROCEDURE: The patient was counseled on the risks, benefits, indications and alternatives of the procedure. Informed consent was obtained. She was taken to the operating room with IV running and placed on the operating table in the dorsal supine position with a leftward tilt. Regional anesthesia was found to be adequate. Sequential compression devices were placed on the lower extremities. A Kc catheter was placed under sterile conditions. She was prepared and draped in normal sterile fashion. A time out was performed per protocol. Regional anesthesia was again found to be adequate. A Pfannenstiel skin incision was made with the 10 blade. The 10 blade was used to dissect down to the level of the rectus sheath fascia. The rectus sheath pressure was incised midline and this was extended bilaterally with Kathleen scissors , and manual stretch. The rectus muscle bellies were dissected off the rectus sheath fascia superiorly and inferiorly using both sharp and blunt dissection. The midline was identified. The peritoneum was identified and entered digitally. The peritoneal opening was extended with manual stretch. The Mobius retractor was placed. The vesicouterine peritoneum was dissected with Metzenbaum scissors to create the bladder flap. A low transverse uterine incision was made with the 10 blade. This was extended with manual stretch. The amniotic sac was punctured, and clear fluid was noted. The baby delivered through the hysterotomy without difficulty. The cord was doubly clamped and cut, and the baby was handed off to awaiting care. data shown above. Cord blood obtained. Cord gases were obtained. The placenta was removed manually. The intrauterine cavity was cleared of all clot and debris. The hysterotomy was closed with 0 Vicryl in running locked fashion. This was reinforced with a second imbricating layer using 0 Vicryl in running fashion. Excellent hemostasis of the hysterotomy was noted. The pelvis was irrigated and the fluid suctioned. The Mobius retractor was removed. The peritoneum was closed with 3-0 Vicryl running fashion. The rectus muscle bellies were reapproximated with interrupted stitches using 3-0 Vicryl. The rectus muscles bellies were hemostatic. The rectus sheath fascia was closed with 0 Vicryl running fashion. The subcutaneous layer was irrigated and the fluid suctioned. Small bleeding vessels were cauterized with Bovie. Excellent hemostasis was noted. The subcutaneous layer was reapproximated with 3-0 Vicryl running fashion. Skin was closed with 3-0 Monocryl in subcuticular fashion. An Optifoam bandage was placed over the closed incision. Sponge, needle and instrument counts were correct per protocol throughout the procedure. The patient tolerated the entire procedure very well. She was transferred to the PACU in stable condition. DO MORIAH Bean JONATHAN R. DO Jan 17, 2021 21:33
[2021-01-17] MEDS ORDERED: LR 1,000 ML IV SCH (21:45)
[2021-01-17] MEDS ORDERED: MEPERIDINE INJ 25 MG/ML VIAL (J2175) IV PRN (21:45)
[2021-01-17] MEDS ORDERED: fentaNYL 100 MCG/2 ML INJECTION (J3010) IV PRN (21:45)
[2021-01-17] MEDS ORDERED: KETOROLAC 30 MG/ML 1ML VIAL IV PRN (21:45)
[2021-01-17 21:50] LABS: CORD GAS ABE A -4.8; CORD GAS ABE V -3.4; CORD GAS HCO3 A 23.8 MEQ/L; CORD GAS HCO3 V 23.6 MEQ/L; CORD GAS O2 SAT V 75.4 %; CORD GAS PCO2 A 58.3 mmHg; CORD GAS PCO2 V 49.7 mmHg; CORD GAS PH A 7.228 UNITS; CORD GAS PH V 7.295 UNITS; CORD GAS PO2 A 19.8 mmHg; CORD GAS PO2 V 33.3 mmHg; CORD GAS SBC A 19.1 MEQ/L; CORD GAS SBC V 21.1 MEQ/L; CORD GAS TCO2 A 25.5 MEQ/L; CORD GAS TCO2 V 25.2 MEQ/L
[2021-01-17] MEDS ORDERED: KETOROLAC 30 MG/ML 1ML VIAL As Ordered ONE (21:54)
[2021-01-17] MEDS: PERCOCET 5MG/325MG TAB PO PRN (23:38)
[2021-01-18] VITALS (8 sets, daily range): BP systolic 100–177; BP diastolic 50–62
[2021-01-18] MEDS: LR 1,000 ML IV SCH ×4 (01:48→21:30)
[2021-01-18] MEDS: KETOROLAC 30 MG/ML 1ML VIAL IV SCH ×3 (04:11→16:24)
[2021-01-18 05:37] LABS: HEMATOCRIT 32.2 % (36.0-47.0); MEAN CORPUSCULAR HEMOGLOBIN 30.3 pg (27.0-33.0); MEAN CORPUSCULAR HGB CONC 34.2 g/dl (32.0-36.5); MEAN CORPUSCULAR VOLUME 88.7 fl (80.0-96.0); PLATELET COUNT, AUTOMATED 211 10^3/uL (150-450); RED BLOOD COUNT 3.63 10^6/uL (4.00-5.40); WHITE BLOOD COUNT 15.5 10^3/uL (4.0-10.0)
--- NOTE | 2021-01-18 07:05 | IPNPDOC ---
Progress Note Date of Service: Jan 18, 2021 Day#: 1 Progress Note SUBJECT: Status post PLTCS She has been ambulating, voiding spontaneously without issue and tolerating regular diet. Lochia decreasing/minimal. Pain is well-controlled. Incision bandage is clean/unsaturated. Denies headache, visual changes, right upper quadrant pain, shortness of breath or chest pain. OBJECTIVE: VITAL SIGNS: Within normal limits, afebrile. Alert and oriented times three. Abdomen: Fundus firm at U-2. Soft, NTTP. Incision bandage not soaked through Item Value Date Time White Blood Count 15.5 10^3/uL H 01/18/21525 Red Blood Count 3.63 10^6/uL L 01/18/21525 Hematocrit 32.2 % L 01/18/21525 Hemoglobin 11.0 g/dl L 01/18/21525 Mean Corpuscular Volume 88.7 fl 01/18/21525 Mean Corpuscular Hemoglobin 30.3 pg 01/18/21525 Mean Corpuscular Hemoglobin Concent 34.2 g/dl 01/18/21525 Red Cell Distribution Width 13.1 % 01/18/21525 Platelet Count 211 10^3/uL 01/18/21525 Nucleated Red Blood Cells % (auto) 0.0 % 01/18/21525 ASSESSMENT: Status post uncomplicated PLTCS. Vitals within normal limits, afebrile, hemodynamically stable with no evidence of infection. PLAN: Discharge to home tomorrow Routine /postoperative advancement Postoperative instructions/precautions reviewed. Routine PP visit at 2 and 6 weeks in clinic. VS, I&O, 24H, Charlie Vital Signs/I&O Vital Signs Date Time Temp Pulse Resp B/P (MAP) Pulse Ox O2 Delivery O2 Flow Rate FiO2 01/18/21 06:00 97.5 98 18 102/62 (75) 96 Room Air I&O- Last 24 Hours up to 6 AM 01/18/21 06:00 Intake Total 4885 ml Output Total 1500 ml Balance 3385 ml Laboratory Data 24H LABS Laboratory Tests 2 01/17/21 11:23: Serology Scanned Report Hepatitis B Testing 01/17/21 11:28: Urine Opiates Screen NEGATIVE, Urine Methadone Screen NEGATIVE, Urine Barbiturates Screen NEGATIVE, Urine Phencyclidine Screen NEGATIVE, Urine Amphetamines Screen NEGATIVE, Urine Benzodiazepines Screen NEGATIVE, Urine Cocaine Metabolite Screen NEGATIVE, Urine Cannabinoids Screen NEGATIVE 01/17/21 11:43: Nucleated Red Blood Cells % (auto) 0.0 01/17/21 21:36: Cord Arterial Blood pH 7.228, Cord Arterial Blood PCO2 58.3, Cord Arterial Blood PO2 19.8, Cord Arterial Blood HCO3 23.8, Cord Arterial Blood Total CO2 25.5, Cord Arterial Blood Base Excess -4.8, Cord Arterial Base Excess (Standard 19.1, Cord Arterial Bld Oxygen Saturation 38.0, Cord Venous Blood pH 7.295, Cord Venous Blood PCO2 49.7, Cord Venous Blood PO2 33.3, Cord Venous Blood HCO3 23.6, Cord Venous Blood Total CO2 25.2, Cord Venous Base Excess (Actual) -3.4, Cord Venous Base Excess (Standard) 21.1, Cord Venous Blood Oxygen Saturation 75.4 01/18/21 05:26: Nucleated Red Blood Cells % (auto) 0.0 CBC/BMP Laboratory Tests 01/17/21 11:43 01/18/21 05:26 MARGOT HENDRIX DO Jan 18, 2021 07:05
[2021-01-18] MEDS ORDERED: DOK1CAP7 PO (07:06)
[2021-01-18] MEDS ORDERED: IBUP80TA PO (07:06)
[2021-01-18] MEDS ORDERED: PERCOCET PO (07:06)
[2021-01-18] MEDS: DOCUSATE SODIUM 100MG CAPSULE PO SCH ×2 (09:30→21:00)
[2021-01-18] MEDS: PRENATAL VITAMINS CHEWABLE TABLET PO SCH (09:30)
[2021-01-18] MEDS: PERCOCET 5MG/325MG TAB PO PRN (21:57)
[2021-01-19] MEDS: IBUPROFEN 800 MG TAB PO SCH ×2 (00:06→07:51)
[2021-01-19 06:00] VITALS: BP 119/72
[2021-01-19] MEDS: DOCUSATE SODIUM 100MG CAPSULE PO SCH (07:49)
[2021-01-19] MEDS: PRENATAL VITAMINS CHEWABLE TABLET PO SCH (07:49)
[2021-01-19 10:11] VITALS: BP 137/74
--- NOTE | 2021-01-19 10:16 | OBDS ---
[facility] Obstetrical Discharge Sum. Obstetrical Discharge Summary Pediatric Intensive Physician/Provider: JOVANNA GOLDBERG MD Date: Jan 19, 2021 Time: 10:02 A/P, Post Course List any complications HPI: Pt doing well, sitting upright in bed. Reports occasional mild tenderness at incision site. Reports ambulation to and from bathroom w/out assistance. Denies difficulty urinating. Denies bleeding, fevers, GI complications. Uterus firm to palpation Incision bandage w/out bleeding or discharge. No signs of infxn in surrounding area. Hospital course: Vanessa Levine presented to [facility] L&D 01/17/21 at 40.3 GA in active labor. Due to arrest of cervical dilation and nonreassuring FHR was transitioned to csection. Low transverse csection w/out complications performed by Dr. Boykin. Baby was stable at 3310g w/ APGARs 8+9. Post op course uncomplicated. Admission diagnosis: 40wks labor. Discharge diagnosis: delivered Condition at Discharge: stable Discharge Instructions: Home Activity: as tolerated Diet: as tolerated Medications: oxycodone + ibuprofen PRN Follow-up: 2wks Other: instructions reviewed Reena Scruggs DO Jan 19, 2021 10:16
== END 2021-01-19 11:35 | disposition home or self-care (01) | DRG 788 ==
LOC: M LDO 09:45 → M LDI 11:11 → M OBS 22:45
PROVIDERS: ADMIT Obstetrics & Gynecology; ATTEND Obstetrics & Gynecology
PROC: 10D00Z1 Extraction of Products of Conception, Low, Open Approach (ICD-10-PCS; principal; 2021-01-17 20:16)
DX: O48.0 Post-term pregnancy (principal); Z3A.40 40 weeks gestation of pregnancy; O76 Abnormality in fetal heart rate and rhythm complicating labor and delivery; O62.0 Primary inadequate contractions; Z37.0 Single live birth

== ENCOUNTER 2021-09-27 20:30 | Emergency (ER) | payer OTHER ==
[~2021-09-27] VITALS: Ht 154.9 cm; Wt 75.0 kg
[~2021-09-27 20:30] MED LIST changes: +ACET500P3 PO; +DOK1CAP4 PO; +IBUP80TA PO; +PERCOCET PO
[2021-09-27 20:32] VITALS: BP 125/58
== END 2021-09-27 22:05 | disposition left against medical advice (07) ==
LOC: M ED 20:30
DX: Z53.21 Procedure and treatment not carried out due to patient leaving prior to being seen by health care provider (principal)

== ENCOUNTER 2021-10-20 16:55 | Emergency (ER) | payer OTHER ==
[~2021-10-20] VITALS: Ht 154.9 cm; Wt 75.0 kg
[2021-10-20 16:56] VITALS: BP 123/68
== END 2021-10-20 21:46 | disposition home or self-care (01) ==
LOC: M ED 16:55
DX: U07.1 COVID-19 (principal); J06.9 Acute upper respiratory infection, unspecified; B97.10 Unspecified enterovirus as the cause of diseases classified elsewhere; B97.89 Other viral agents as the cause of diseases classified elsewhere

== ENCOUNTER 2022-03-29 00:52 | Emergency (ER) | payer OTHER ==
[~2022-03-29] VITALS: Ht 154.9 cm; Wt 68.2 kg
[2022-03-29 01:37] LABS: BASO # 0.1 10^3/uL (0.0-0.2); BASO % 0.3 % (0.0-1.0); EOS # 0.3 10^3/uL (0.0-0.5); EOS % 1.6 % (0.0-3.0); HEMATOCRIT 46.8 % (36.0-47.0); HEMOGLOBIN 15.9 g/dl (12.0-15.5); LYMPH # 3.1 10^3/uL (1.5-5.0); LYMPH % 19.1 % (24.0-44.0); MEAN CORPUSCULAR HEMOGLOBIN 29.4 pg (27.0-33.0); MEAN CORPUSCULAR VOLUME 86.7 fl (80.0-96.0); MONO # 1.2 10^3/uL (0.0-0.8); MONO % 7.1 % (2.0-8.0); NEUTROPHILS # 11.5 10^3/uL (1.5-8.5); NEUTROPHILS % 71.3 % (36.0-66.0); PLATELET COUNT, AUTOMATED 332 10^3/uL (150-450); WHITE BLOOD COUNT 16.1 10^3/uL (4.0-10.0)
[2022-03-29] MEDS ORDERED: NS 1,000 ML IV ONE (02:00)
[2022-03-29] MEDS ORDERED: ONDANSETRON 4MG 2ML VIAL IV ONE (02:00)
[2022-03-29 02:04] LABS: HCG, SERUM QUALITATIVE NEGATIVE (NEGATIVE)
[2022-03-29 02:11] LABS: ALBUMIN 4.2 GM/DL (3.2-5.2); ALT/SGPT 26 U/L (12-78); AMYLASE 60 U/L (25-115); BILIRUBIN,DIRECT 0.2 MG/DL (0.0-0.2); BILIRUBIN,TOTAL 0.6 MG/DL (0.2-1.0); BLOOD UREA NITROGEN 14 MG/DL (7-18); CALCIUM LEVEL 9.8 MG/DL (8.5-10.1); CARBON DIOXIDE LEVEL 26 MEQ/L (21-32); CHLORIDE LEVEL 107 MEQ/L (98-107); GLOMERULAR FILTRATION RATE > 60.0 (>60); GLUCOSE, FASTING 138 MG/DL (70-100); LIPASE 162 U/L (73-393); POTASSIUM SERUM 3.7 MEQ/L (3.5-5.1); SODIUM LEVEL 142 MEQ/L (136-145); TOTAL PROTEIN 8.1 GM/DL (6.4-8.2)
[2022-03-29] MEDS ORDERED: ONDA4TAB6 PO (05:37)
[2022-03-29] MEDS ORDERED: ONDANSETRON 4MG ORAL DISINTEGRATING TAB PO ONE (05:40)
[2022-03-29 05:49] VITALS: BP 128/72
== END 2022-03-29 05:50 | disposition home or self-care (01) ==
LOC: M ED 00:52
DX: B34.8 Other viral infections of unspecified site (principal); E86.0 Dehydration; R11.0 Nausea; Z20.822 Contact with and (suspected) exposure to COVID-19
CPT/HCPCS: 71046; 80048; 80076; 82150; 83605; 83690; 84703; 85025; 87486; 87581; 87633; 87798; 96361; 96374; 99284; J2405

== ENCOUNTER 2023-06-02 03:38 | Emergency (ER) | payer MEDICAID, OTHER ==
[~2023-06-02] VITALS: Ht 154.9 cm; Wt 75.4 kg
[~2023-06-02 03:38] MED LIST changes: +ONDA4TAB6 PO
[2023-06-02] MEDS ORDERED: ESTA0.25 (03:53)
[2023-06-02] MEDS ORDERED: AMOX875T2 (03:53)
[2023-06-02] MEDS ORDERED: BENZ-18 (03:53)
[2023-06-02] MEDS ORDERED: ACETAMINOPHEN 500 MG TAB PO ONE (06:30)
[2023-06-02] MEDS ORDERED: IBUPROFEN 600MG TAB PO ONE (06:30)
[2023-06-02 08:15] VITALS: BP 122/59; TEMP 98.7; O2SAT 97
== END 2023-06-02 08:15 | disposition home or self-care (01) ==
LOC: M ED 03:38
DX: J10.1 Influenza due to other identified influenza virus with other respiratory manifestations (principal); B34.1 Enterovirus infection, unspecified; Z11.52 Encounter for screening for COVID-19